=== PATIENT | female | born 1975 | race Caucasian/White ===

== ENCOUNTER 2023-08-09 12:04 | Outpatient (CLI) | payer OTHER, SELFPAY ==
--- NOTE | 2023-08-09 14:18 | W.ANESCHARGE ---
Anesthesia Charges Start Date/Time Anesthesia Start Date: 08/09/23 Anesthesia Start Time: 13:54 Stop Date/Time Anesthesia Stop Date: 08/09/23 Anesthesia Stop Time: 14:16
--- NOTE | 2023-08-09 14:29 | W.ANESCHARGE ---
Anesthesia Charges Start Date/Time Anesthesia Start Date: 08/09/23 Anesthesia Start Time: 13:54 Stop Date/Time Anesthesia Stop Date: 08/09/23 Anesthesia Stop Time: 14:16
== END 2023-08-09 12:05 | disposition home or self-care (01) ==
LOC: OP CLINIC 12:08
PROVIDERS: PCP Student in an Organized Health Care Education/Training Program; Visit Provider Internal Medicine Gastroenterology
DX: Z12.11 Encounter for screening for malignant neoplasm of colon (principal); K63.5 Polyp of colon
CPT/HCPCS: 00811; 45385; 88305; J2704

== ENCOUNTER 2024-12-01 12:29 | Outpatient (CLI) | payer OTHER, SELFPAY | END 2024-12-01 12:30 | disposition home or self-care (01) | LOC: NFLDUCREF 12:29 | PROVIDERS: PCP Student in an Organized Health Care Education/Training Program | DX: R35.0 Frequency of micturition (principal); R10.9 Unspecified abdominal pain | CPT/HCPCS: 87086 ==